=== PATIENT | female | born 1985 | race Caucasian/White ===

== ENCOUNTER → 2017-03-05 | Outpatient (CLI) | payer OTHER ==
--- NOTE | 2017-03-05 16:45 | RAD ---
PROCEDURE MR of the right ankle and MR of the right foot HISTORY Pain at the top of the foot and at the medial instep. Pain and swelling. Injury 3 weeks ago. TECHNIQUE Routine multiplanar sequences are obtained. COMPARISON None FINDINGS Ankle Peroneal tendons are intact. The anterior talofibular ligament is poorly defined compatible with a sprain or scarring. The calcaneofibular ligament is mildly thickened compatible with scarring but no acute rupture or laxity. Posterior talofibular ligament is intact. Anterior inferior tibiofibular ligament intact. Posterior tibial and flexor tendons are intact. No acute medial ligament injury. Anterior tibial tendon is intact. There is some minimal surrounding edema or fluid signal at the level of the ankle joint. The extensor tendons appear intact. Achilles tendon intact. No acute plantar fasciitis. Subtalar joints are patent. Talar dome is intact. Trace joint effusion at the tibiotalar joint. No bone lesion or acute fracture. Mild soft tissue edema at the medial hindfoot. Foot The visualized tendons in the foot are intact. No significant tendon sheath fluid. Lisfranc ligament complex is intact. Tarsometatarsal joint alignment is intact. No bone lesion or acute fracture. No significant joint effusion. Mild soft tissue edema along the medial foot. IMPRESSION 1. Sprain/scarring of the anterior talofibular and calcaneofibular ligaments. 2. Minimal edema or fluid surrounding the anterior tibial tendon at the level of the ankle, without tendinosis or tear. 3. Mild nonspecific soft tissue edema along the medial foot, could be inflammatory or posttraumatic. Electronically signed by: Atilio Mcmanus MD (March 05, 2017 16:44:00)
== END | disposition home or self-care (01) ==
LOC: MRI 14:30
PROVIDERS: ATTEND Orthopaedic Surgery Sports Medicine
DX: S96.811D Strain of other specified muscles and tendons at ankle and foot level, right foot, subsequent encounter (principal); X58.XXXD Exposure to other specified factors, subsequent encounter
CPT/HCPCS: 73718; 73721